=== PATIENT | female | born 1985 ===

== ENCOUNTER 2024-11-30 10:27 | Day surgery (SDC) | payer OTHER ==
[~2024-11-30 10:27] MED LIST: ATORVASTATIN CA10 MG PO; FUSION PLUS CA1 EACH PO; MEGACE
[2024-11-30] MEDS ORDERED: HYDROGEN PEROXIDE 473 ML BOTTLE TOP ONE (13:39)
[2024-11-30] MEDS ORDERED: POVIDONE-IODINE 118 ML BOTT TOP ONE (17:00)
[2024-11-30] MEDS ORDERED: MORPHINE SULFATE 4 MG/ML VIAL IV PRN (17:45)
[2024-11-30] MEDS ORDERED: ACETAMINOPHEN 500 MG GEL..CAP PO ONE (17:45)
== END 2024-11-30 21:50 | disposition home or self-care (01) ==
LOC: CIR.AMB 10:27
PROVIDERS: ATTEND Obstetrics & Gynecology
DX: D25.0 Submucous leiomyoma of uterus (principal); N93.8 Other specified abnormal uterine and vaginal bleeding; Z91.041 Radiographic dye allergy status; Z88.6 Allergy status to analgesic agent; Z91.013 Allergy to seafood; Z88.8 Allergy status to other drugs, medicaments and biological substances